=== PATIENT | female | born 1995 | race Caucasian/White ===

== ENCOUNTER 2016-08-30 23:00 | Inpatient (IN) | payer OTHER ==
--- NOTE | ~2016-08-30 | HP ---
Unit #: [id number] #: [id number] Patient: [place] [id number] [place] [address] [id number] MR#: [id number] NAME: PHYLLIS LI ROOM: P207 Age: 21 Sex: F Admission Date: 08/31/2016 : 1995 Attending Physician: Renaldo Sarmiento M.D. Admitting Physician: Renaldo Sarmiento M.D. Primary Care Physician: Primary Care Physician No HISTORY AND PHYSICAL HISTORY OF PRESENT ILLNESS Phyllis is a 21 year old, admitted to [address] [place] [address] because of her polysubstance abuse which includes heroin and methamphetamine. PAST MEDICAL HISTORY 1. History of illicit substance abuse to include IV meth and heroin. 2. Hepatitis C. 3. History of bacterial meningitis as a child. PAST SURGICAL HISTORY Nothing reported. ALLERGIES No known drug allergies. SOCIAL HISTORY He smokes one pack per day, he drinks alcohol rarely, admits to a history of illicit substance abuse to include IV drugs. FAMILY HISTORY Medically noncontributory. REVIEW OF SYSTEMS CONSTITUTIONAL: No fever or chills. HEENT: Denies any sore throat, ear pain or runny nose. CARDIOVASCULAR: Denies chest pain, irregular heart rhythm or palpitations. CHEST: Denies shortness of breath or cough. No hemoptysis. GASTROINTESTINAL: Denies nausea, vomiting, diarrhea or chronic constipation. ENDOCRINE: Denies history of increased thirst or urination. No recent significant weight loss or gain. GENITOURINARY: Denies dysuria, frequency, or hematuria. SKIN: Denies any rashes. HEMATOLOGIC: Denies history of increased bleeding or bruising. MUSCULOSKELETAL: Denies any hot, swollen joints. No generalized muscle pain. NEUROLOGIC: Denies problems with vision or speech. No frequent, severe headaches. No numbness, tingling or weakness in any extremities. Denies loss of bladder or bowel control. CURRENT MEDICATIONS Detox protocol. Unit #: [id number] #: [id number] Patient: PHYLLIS LI PHYSICAL EXAMINATION GENERAL: Alert, well-nourished, no apparent distress. VITAL SIGNS: Blood pressure 120/72, heart rate 80, respirations 16, and temperature 98.6. WEIGHT: 148 pounds. HEIGHT: 5 feet 5 inches. SKIN: Warm and dry without rash or lesion. HEENT: Normocephalic. TMs not viewed. Oral and nasal passages clear. Conjunctivae clear. PERRLA. EOMs intact. NECK: Supple without lymphadenopathy or thyromegaly. HEART: Regular rate and rhythm without murmur. LUNGS: Clear. ABDOMEN: Soft, nontender. : Not done. EXTREMITIES: No evidence of cyanosis, clubbing or edema. Moves all without focal deficit. NEUROLOGICAL: Grossly within normal limits. Cranial Nerves: II: Visual leung are intact. III, IV AND : Extraocular movements are intact. Pupils are equal, round and reactive to light. V: Facial sensation is grossly normal. VII: Facial movements and expression are normal. VIII: Auditory acuity grossly intact. IX, X: Uvula is midline. Phonation is normal. XI: Patient shrugs shoulders and turns head normally. XII: Tongue protrudes in the midline. Sensory and Motor Function: Sensory and motor sensation is grossly normal. Motor: moves all extremities well. Coordination: Gait is normal. Deep Tendon Reflexes: Intact. IMPRESSION Psychiatric admission. RECOMMENDATIONS Psychiatric, per psychiatrist. MEDICAL I see no contraindications to participating in facility's activities. MEDICAL PROGNOSIS Good. MEDICAL CONDITION Stable. Dictated by... Rachel Mcdaniel P.A.-C. for Keegan Neff/judy TD: 09/01/2016 11:59 JOB #: [id number] Unit #: [id number] #: [id number] Patient: PHYLLIS LI HISTORY AND PHYSICAL Page 1 of 1 X Rachel Mcdaniel HISTORY AND PHYSICAL
--- NOTE | ~2016-08-30 | PA ---
Unit #: [id number] #: [id number] Patient: PHYLLIS LI [id number] [facility] [address] [place] [address] [id number] MR#: [id number] NAME: PHYLLIS LI ROOM: P20 Age: 21 Sex: F Admission Date: 08/31/2016 : 1995 Date of Assessment: 09/07/2016 Attending Physician: Renaldo Sarmiento M.D. Admitting Physician: Renaldo Sarmiento M.D. Primary Care Physician: Primary Care Physician No PSYCHIATRIC ASSESSMENT This is the addendum for the job number [id number]. ADMITTING DIAGNOSIS SECONDARY DIAGNOSIS Deferred. MEDICAL DIAGNOSIS Hepatitis C. STRESSORS Psychosocial stressor. TREATMENT GOAL/DISCHARGE PLAN 1. Advise to admit the patient on the inpatient unit. Provide safe supportive structured environment. 2. Order labs, CBC, CMP, UA, UDS. 3. Detox protocol, detox monitoring. 4. The patient to attend all the programming on the inpatient unit. If needed consider further adjustment of medication. 5. Treatment goal to attain euthymic mood, gain insight into her problem. Learn coping skill. DISCHARGE PLAN Plan to stabilize patient and consider followup in outpatient program. ESTIMATE LENGTH OF STAY Five days. Dictated by... Keegan Rivera/rosy TD: 09/07/2016 21:55 JOB #: [id number] Unit #: [id number] #: [id number] Patient: PHYLLIS LI PSYCHIATRIC ASSESSMENT Page 1 of 1 X Renaldo Sarmiento MD X PSYCHIATRIC ASSESSMENT
--- NOTE | ~2016-08-30 | DS ---
Unit #: [id number] #: [id number] Patient: PHYLLIS LI [id number] [facility] [address] [place] [address] [id number] I MR#: [id number] NAME: PHYLLIS LI ROOM: [facility] Age: 21 Sex: F Admission Date: 08/31/2016 : 1995 Discharge Date: 09/01/2016 Attending Physician: Renaldo Sarmiento M.D. Primary Care Physician: Primary Care Physician No DISCHARGE SUMMARY REASON FOR ADMISSION Polysubstance abuse, suicidal ideation. DIAGNOSTIC STUDIES LABORATORY RESULTS: Unremarkable. HOSPITAL COURSE The patient was admitted to inpatient unit on 08/31/2016 and discharged on 09/01/2016. The patient was treated on the inpatient unit with detox protocol, detox monitoring, group therapy, individual therapy, chemical dependency group. The patient responded well with the above modalities of treatment. Denied any suicidal or homicidal ideation. Denied any withdrawal symptoms. The patient requested to be discharged and follow up in outpatient program. The patient was discharged, as the patient is not suicidal or homicidal, able to contract for safety. DISCHARGE MEDICATIONS None. DISCHARGE DIAGNOSES Psychiatric: Opioid use disorder, severe, F11.20; amphetamine use disorder, severe, F15.20; mood disorder, not otherwise specified, F32.9. Secondary diagnosis: Deferred. Medical diagnosis: Hepatitis C. Stressors: Psychosocial stressors. DISCHARGE INSTRUCTIONS The patient to follow up in outpatient clinic as per bilingual social worker. CONDITION ON DISCHARGE The patient was pleasant and cooperative. Denied any psychotic symptom or any suicidal ideation. PROGNOSIS Guarded. DIET AND ACTIVITY As tolerated. Unit #: [id number] #: [id number] Patient: PHYLLIS LI Dictated by... Renaldo Sarmiento M.D. SZC/daya TD: 09/02/2016 01:35 JOB #: [id number] DISCHARGE SUMMARY Page 1 of 1 X Renaldo Sarmiento MD X DISCHARGE SUMMARY
[2016-08-31 09:38] LABS: BASOPHIL% 0.2 % (0-2.5); EOSINOPHIL# 0.2 X10e3 (0-0.7); EOSINOPHIL% 2.6 % (0.0-7.0); HEMATOCRIT 39.2 % (35.0-45.0); LYMPHOCYTE# 2.8 X10e3 (1.0-3.5); LYMPHOCYTE% 45.5 % (17.0-45.0); MEAN CELL VOLUME 89.5 FL (83-96); MEAN CORPUSCULAR HEMOGLOBIN 29.7 PG (28-34); MEAN CORPUSCULAR HGB CONC 33.1 g/dL (30-36); MEAN PLATELET VOLUME 8.1 FL (6.5-11.5); MONOCYTE# 0.4 X10e3 (0-1.0); NEUTROPHIL# 2.7 X10e3 (1.5-7.1); NEUTROPHIL% 44.7 % (40-75); PLATELET COUNT 236 X10e3 (140-420); RED BLOOD COUNT 4.38 X10e (3.90-5.30); RED CELL DISTRIBUTION WIDTH 14.1 % (11.0-15.5); WHITE BLOOD COUNT 6.1 X10e3 (4.0-10.5)
[2016-08-31 09:43] LABS: DIFF IND NO
[2016-08-31 10:26] LABS: BILIRUBIN,TOTAL 0.7 mg/dL (0.2-2.0); CALCIUM SERUM 9.7 mg/dL (8.4-10.2); CREATININE SERUM 0.5 mg/dL (0.6-1.4); GLOM FILT RATE Estimated 137.4 mL/min (>60); POTASSIUM 4.1 mmol/L (3.5-5.1)
[2016-09-04 10:25] LABS: HA AB IGM (HEPPAN) Nonreactive (()); HB CORE AB IGM (HEPPAN) Nonreactive (Nonreactive); HB S AG (HEPPAN) Nonreactive (Nonreactive); HEP C AB (HEPPAN) Reactive (Nonreactive)
== END 2016-09-01 09:25 | disposition home or self-care (01) | DRG 897 ==
LOC: P2S 08-31 01:30
PROVIDERS: Psychiatry & Neurology Psychiatry
PROC: HZ2ZZZZ Detoxification Services for Substance Abuse Treatment (ICD-10-PCS; principal; 2016-08-31)
DX: F11.20 Opioid dependence, uncomplicated (principal); R45.851 Suicidal ideations; F15.20 Other stimulant dependence, uncomplicated; F39 Unspecified mood [affective] disorder; B19.20 Unspecified viral hepatitis C without hepatic coma; F17.210 Nicotine dependence, cigarettes, uncomplicated
CPT/HCPCS: 80053; 80074; 84703; 85025; 86592; 87522; 87806